=== PATIENT | male | born 1935 | race Caucasian/White ===

== ENCOUNTER 2018-03-02 17:25 | Emergency (ER) | payer MEDICARE, OTHER ==
[~2018-03-02] VITALS: Ht 165.1 cm; Wt 87.7 kg
[2018-03-02 17:41] VITALS: Ht 165.1 cm; Wt 87.7 kg
[2018-03-02] MEDS ORDERED: VITAMIN E400 UNI2 (17:43)
[2018-03-02] MEDS ORDERED: ASCORBIC ACID500 MG PO (17:44)
[2018-03-02] MEDS ORDERED: ASPIRIN81 MG (17:44)
[2018-03-02] MEDS ORDERED: OSTEO BI-FLEX1 EAC1 (17:44)
[2018-03-02] MEDS ORDERED: ALEVE220 MG (17:44)
[2018-03-02] MEDS ORDERED: MULTIVITAMIN (17:44)
[2018-03-02] MEDS ORDERED: FISH OIL 1,0001 CA1 (17:45)
[2018-03-02] MEDS ORDERED: FLAXSEED OIL1000 MG (17:45)
[2018-03-02] MEDS ORDERED: LISINOPRIL10 MG PO (17:45)
[2018-03-02] MEDS ORDERED: VITAMIN D31000 UNIT (17:45)
[2018-03-02] MEDS ORDERED: GARLIC (17:46)
[2018-03-02] MEDS ORDERED: MIRALAX17 GM (17:46)
[2018-03-02] MEDS ORDERED: PROSCAR5 MG (17:46)
[2018-03-02] MEDS ORDERED: FUROSEMIDE20 MG (17:46)
[2018-03-02] MEDS ORDERED: FLOMAX0.4 MG PO (17:46)
[2018-03-02 19:06] LABS: APPEARANCE CLEAR (CLEAR); BILIRUBIN NEGATIVE (NEGATIVE); COLOR YELLOW (YELLOW); GLUCOSE NEGATIVE (NEGATIVE); KETONE NEGATIVE (NEGATIVE); NITRITE NEGATIVE (NEGATIVE); PROTEIN NEGATIVE (NEGATIVE); UROBILINOGEN NORMAL (NORMAL)
[2018-03-02 20:17] LABS: BASOPHILS 0.3 % (0-2); EOSINOPHILS 3.2 % (0-7); HEMATOCRIT 38.1 % (42.0-54.0); HEMOGLOBIN 13.2 g/dL (13.5-17.5); IMMATURE GRANULOCYTES 0.2 % (0-5); LYMPHOCYTES 34.4 % (15-50); MCH 33.2 pg (26.0-34.0); MCHC 34.6 g/dL (31.0-37.0); MCV 95.7 fL (80.0-100.0); MONOCYTES 9.4 % (2-11); NEUTROPHILS 52.5 % (40-80); PLATELET COUNT 134 10x3/uL (130-400); RBC 3.98 10x6/uL (4.20-6.10); RDW 13.1 % (11.5-14.5); WBC 6.3 10x3/uL (4.8-10.8)
[2018-03-02 20:29] LABS: ALBUMIN 3.6 g/dL (3.4-5.0); ALKALINE PHOSPHATASE 55 U/L (46-116); ALT (SGPT) 28 U/L (10-68); BILIRUBIN - TOTAL 0.58 mg/dL (0.2-1.3); CALC OSMOLALITY 280 mosm/kg (275-300); CALCIUM 9.3 mg/dL (8.5-10.1); CARBON DIOXIDE 27.8 mmol/L (21.0-32.0); CHLORIDE - SERUM 101 mmol/L (98-107); CREATININE - SERUM 0.9 mg/dL (0.6-1.3); GLUCOSE 145 mg/dL (74-106); POTASSIUM - SERUM 4.3 mmol/L (3.5-5.1); PROTEIN - SERUM 6.7 g/dL (6.4-8.2); SODIUM 137 mmol/L (136-145); UREA NITROGEN 23 mg/dL (7-18); eGFR NON AFRICAN AMERICAN 85 mL/min (90-120)
[2018-03-02 21:28] VITALS: BP 166/63
== END 2018-03-02 21:30 | disposition home or self-care (01) ==
LOC: D.ER 17:25
PROVIDERS: Family Medicine
DX: R68.89 Other general symptoms and signs (principal); H35.30 Unspecified macular degeneration; I10 Essential (primary) hypertension; Z95.0 Presence of cardiac pacemaker; K21.9 Gastro-esophageal reflux disease without esophagitis; N42.9 Disorder of prostate, unspecified

== ENCOUNTER → 2018-05-18 13:57 | Outpatient (CLI) | payer MEDICARE, OTHER ==
[2018-03-02 17:41] VITALS: BMI 32.1
[~2018-05-18 13:57] MED LIST: ALEVE220 MG; ASCORBIC ACID500 MG PO; ASPIRIN81 MG; FISH OIL 1,0001 CA1; FLAXSEED OIL1000 MG; FLOMAX0.4 MG PO; FUROSEMIDE20 MG; GARLIC; LISINOPRIL10 MG PO; MIRALAX17 GM; MULTIVITAMIN; OSTEO BI-FLEX1 EAC1; PROSCAR5 MG; VITAMIN D31000 UNIT; VITAMIN E400 UNI2
== END | disposition home or self-care (01) ==
LOC: D.CT 13:57
DX: M54.5 Low back pain (principal)

== ENCOUNTER 2018-05-18 15:35 | Emergency (ER) | payer MEDICARE, OTHER ==
[~2018-05-18] VITALS: Ht 165.1 cm; Wt 86.4 kg
[2018-05-18 15:45] VITALS: Ht 165.1 cm; Wt 86.4 kg
[2018-05-18 16:56] LABS: APPEARANCE CLEAR (CLEAR); BILIRUBIN NEGATIVE (NEGATIVE); COLOR YELLOW (YELLOW); GLUCOSE NEGATIVE (NEGATIVE); KETONE NEGATIVE (NEGATIVE); NITRITE NEGATIVE (NEGATIVE); PROTEIN NEGATIVE (NEGATIVE); SPECIFIC GRAVITY 1.015 (1.005-1.020); UROBILINOGEN NORMAL (NORMAL)
[2018-05-18 17:14] LABS: BASOPHILS 0.3 % (0-2); EOSINOPHILS 4.2 % (0-7); HEMATOCRIT 39.6 % (42.0-54.0); HEMOGLOBIN 13.7 g/dL (13.5-17.5); IMMATURE GRANULOCYTES 0.2 % (0-5); LYMPHOCYTES 33.8 % (15-50); MCH 32.9 pg (26.0-34.0); MCHC 34.6 g/dL (31.0-37.0); MEAN PLATELET VOLUME 10.7 fL (7.4-10.4); NEUTROPHILS 52.5 % (40-80); RBC 4.17 10x6/uL (4.20-6.10); WBC 6.1 10x3/uL (4.8-10.8)
[2018-05-18 17:21] LABS: PLATELET COUNT 188 10x3/uL (130-400)
[2018-05-18 17:34] LABS: ALBUMIN 3.5 g/dL (3.4-5.0); ALKALINE PHOSPHATASE 67 U/L (46-116); ALT (SGPT) 33 U/L (10-68); BILIRUBIN - TOTAL 0.58 mg/dL (0.2-1.3); CALC OSMOLALITY 276 mosm/kg (275-300); CALCIUM 9.1 mg/dL (8.5-10.1); CARBON DIOXIDE 26.1 mmol/L (21.0-32.0); CHLORIDE - SERUM 100 mmol/L (98-107); GLUCOSE 157 mg/dL (74-106); POTASSIUM - SERUM 4.7 mmol/L (3.5-5.1); PROTEIN - SERUM 7.1 g/dL (6.4-8.2); SODIUM 135 mmol/L (136-145); UREA NITROGEN 23 mg/dL (7-18); eGFR NON AFRICAN AMERICAN 76 mL/min (90-120)
[2018-05-18 20:14] VITALS: BP 143/80
== END 2018-05-18 20:14 | disposition home or self-care (01) ==
LOC: D.ER 15:35
PROVIDERS: Emergency Medicine
DX: N32.89 Other specified disorders of bladder (principal); R33.9 Retention of urine, unspecified